=== PATIENT | male | born 1985 | race Hispanic/Latino ===

== ENCOUNTER 2017-12-13 03:36 | Emergency (ER) | payer OTHER ==
[~2017-12-13] VITALS: Ht 190.5 cm; Wt 181.4 kg
[~2017-12-13 03:36] MED LIST: CITALOPRAM HBR40 MG PO; GLUCOPHAGE500 MG PO; METOPROLOL TART50 MG PO; PRINIVIL20 MG PO
[2017-12-13] MEDS ORDERED: SODIUM CHLORIDE 0.9% 1000ML 1,000 ML IV STA (03:46)
[2017-12-13] MEDS ORDERED: ONDANSETRON HCL INJ 2 MG/ML VIAL IV STA (03:46)
[2017-12-13] MEDS ORDERED: MORPHINE SULFATE 5 MG/ML VIAL IV ONE (04:00)
[2017-12-13 04:04] LABS: BASOPHILS % 0.3 % (0.0-1.0); EOSINOPHILS # (AUTO) 0.1 (0.0-0.4); EOSINOPHILS % 1.6 % (0.0-6.0); LYMPHOCYTES # (AUTO) 3.3 (1.0-3.2); LYMPHOCYTES % 37.2 % (18.0-39.1); MEAN CORPUSCULAR HEMOGLOBIN 28.1 pg (28-32); MEAN CORPUSCULAR HGB CONC 33.3 g/dL (31-35); MEAN CORPUSCULAR VOLUME 84.4 fL (81-99); MONOCYTES # (AUTO) 0.7 (0.2-0.8); MONOCYTES % 7.9 % (4.4-11.3); NEUTROPHILS # (AUTO) 4.6 (2.1-6.9); NEUTROPHILS % 52.8 % (38.7-80.0); PLATELET COUNT 182 x10e3/uL (140-360); RED BLOOD COUNT 4.62 x10e6/uL (4.3-5.7)
[2017-12-13 04:05] LABS: BILIRUBIN,URINE NEGATIVE (NEGATIVE); KETONES,URINE NEGATIVE (NEGATIVE); LEUKOCYTE ESTERASE ,URINE NEGATIVE (NEGATIVE); NITRITE,URINE NEGATIVE (NEGATIVE); PROTEIN,URINE DIPSTICK NEGATIVE (NEGATIVE); URINE UROBILINOGEN 0.2 mg/dL (0.2 - 1)
[2017-12-13 04:06] LABS: CLARITY,URINE CLEAR (CLEAR); COLOR,URINE YELLOW (YELLOW)
[2017-12-13 04:17] LABS: AMORPHOUS SEDIMENT,URINE FEW (FEW); BACTERIA,URINE RARE /HPF; EPITHELIAL CELLS,URINE FEW /LPF; RBC,URINE 0-5 /HPF (0-5); WBC,URINE (MAN) 0-5 /HPF (0-5)
[2017-12-13 04:25] LABS: ALANINE AMINOTRANSFERASE 42 IU/L (0-55); ALBUMIN 3.6 g/dL (3.5-5.0); ALBUMIN/GLOBULIN RATIO 0.8 (0.8-2.0); ALKALINE PHOSPHATASE 90 IU/L (40-150); ANION GAP 14.1 mmol/L (8-16); BLOOD UREA NITROGEN 11 mg/dL (7-26); BUN/CREATININE RATIO 13 (6-25); CALCIUM 9.1 mg/dL (8.4-10.2); CARBON DIOXIDE 25 mmol/L (22-29); CHLORIDE 103 mmol/L (98-107); CREATINE KINASE 320 IU/L (30-200); CREATININE, SERUM 0.85 mg/dL (0.72-1.25); EST GLOMERULAR FILTRATION RATE > 60 ML/MIN (60-); GLUCOSE 144 mg/dL (74-118); LIPASE 36 U/L (8-78); POTASSIUM 4.1 mmol/L (3.5-5.1); SODIUM 138 mmol/L (136-145)
[2017-12-13 04:32] LABS: TROPONIN I 0.007 ng/mL (0-0.300)
[2017-12-13] MEDS ORDERED: SODIUM CHLORIDE 0.9% 50ML 50 ML ONE (04:40)
[2017-12-13] MEDS ORDERED: IOPAMIDOL 370 MG/ML 200 ML INFUS..BTL INJ ONE (04:40)
--- NOTE | 2017-12-13 05:04 | Diagnostic Imaging Report ---
EXAM: CHEST SINGLE (NOT PORTABLE), AP 1 view DATE: 12/13/2017 3:46 AM Time stamp on exam: O 0450 hours INDICATION: Abdominal pain COMPARISON: None FINDINGS: LINES/TUBES: None LUNGS: No consolidations or edema. PLEURA: No effusions or pneumothorax. HEART AND MEDIASTINUM: Normal size and contour. BONES AND SOFT TISSUES: No acute findings. IMPRESSION: No acute thoracic abnormality. Signed by: Dr. Wen Kennedy M.D. on 12/13/2017 5:01 AM
--- NOTE | 2017-12-13 05:10 | Diagnostic Imaging Report ---
EXAM: CT ABDOMEN AND PELVIS with IV CONTRAST DATE: 12/13/2017 3:46 AM Time stamp on Exam: O 0442 hours INDICATION: Right upper quadrant pain for 3 days COMPARISON: None TECHNIQUE: The abdomen and pelvis were scanned using a multidetector helical scanner. Coronal and sagittal reformations were obtained. Routine protocol performed. IV Contrast: 100 cc Isovue-370 Oral Contrast: Water CTDIvol has been reviewed. It is below the limits set by the Radiation Protocol Committee (RPC). FINDINGS: LOWER THORAX: No consolidations LIVER: No masses BILIARY: The gallbladder is contracted. No ductal dilation. SPLEEN: No masses PANCREAS: No masses ADRENALS: No nodules KIDNEYS: Symmetric perfusion. No enhancing masses. No hydronephrosis. GI TRACT: No distention, wall thickening or evidence of obstruction. Normal appendix. VESSELS: Unremarkable PERITONEUM/RETROPERITONEUM: No free air or fluid LYMPH NODES: No lymphadenopathy REPRODUCTIVE ORGANS: Unremarkable BLADDER: Unremarkable SOFT TISSUES: Tiny fat-containing umbilical hernia. BONES: No suspicious bone lesions. IMPRESSION: Normal CT of the abdomen and pelvis. Signed by: Dr. Wen Kennedy M.D. on 12/13/2017 5:06 AM
[2017-12-13 05:40] VITALS: BP 126/64
== END 2017-12-13 05:58 | disposition home or self-care (01) ==
LOC: ER 03:36
DX: R10.11 Right upper quadrant pain (principal); R10.13 Epigastric pain; R11.2 Nausea with vomiting, unspecified; K29.00 Acute gastritis without bleeding
CPT/HCPCS: 36415; 71010; 74177; 80053; 81001; 82550; 82553; 83690; 84484; 85025; 93005; 99284; J2270; J2405; J7030; Q9967